=== PATIENT | male | born 1945 | race Two or more races ===

== ENCOUNTER 2018-02-10 19:18 | Emergency (ER) | payer MEDICARE, OTHER ==
[2018-02-10 20:41] LABS: ADD MAN DIFF? NO
[2018-02-10 20:44] LABS: WHITE BLOOD COUNT 9.2 10^3/ul (4.8-10.8)
[2018-02-10 20:44] LABS: BASOPHILS % 0.3 % (0.0-2.0); EOSINOPHILS # 0.4 10^3/ul (0.0-0.5); EOSINOPHILS % 4.8 % (0.0-7.0); HEMATOCRIT 36.8 % (42.0-52.0); HEMOGLOBIN 11.8 g/dl (14.0-18.0); LYMPHOCYTES # 0.7 10^3/ul (0.8-2.9); LYMPHOCYTES % 8.1 % (15.0-51.0); MEAN CORPUSCULAR HGB CONC 32.1 g/dl (32.0-37.0); MEAN CORPUSCULAR VOLUME 93.6 fl (82.0-101.0); MONOCYTE # 0.9 10^3/ul (0.3-0.9); NEUTROPHILS % 76.5 % (39.0-77.0); PLATELET COUNT 183 10^3/UL (140-415); RED BLOOD COUNT 3.93 10^6/ul (4.70-6.10); RED CELL DISTRIBUTION WIDTH 13.1 % (11.5-14.5)
[2018-02-10] MEDS: morphine 4 MG/ML VIAL IV (20:54)
[2018-02-10 21:26] LABS: ANION GAP 13 (8-16); BLOOD UREA NITROGEN 29 mg/dl (7-20); CALCIUM 9.1 mg/dl (8.4-10.2); CARBON DIOXIDE 29 mmol/L (21-31); CHLORIDE 99 mmol/L (97-110); CREATININE 1.44 mg/dl (0.61-1.24); GLUCOSE 274 mg/dl (70-220); POTASSIUM 5.1 mmol/L (3.5-5.1); SODIUM 136 mmol/L (135-144)
[2018-02-10 21:37] LABS: TROPONIN-I 0.027 ng/ml (0.000-0.120)
== END 2018-02-11 00:37 | disposition home or self-care (01) ==
LOC: E/R 02-11 00:37
DX: S39.92XA Unspecified injury of lower back, initial encounter (principal); I10 Essential (primary) hypertension; I25.10 Atherosclerotic heart disease of native coronary artery without angina pectoris; W10.9XXA Fall (on) (from) unspecified stairs and steps, initial encounter; Y92.9 Unspecified place or not applicable; Z79.4 Long term (current) use of insulin; Z79.82 Long term (current) use of aspirin; Z98.61 Coronary angioplasty status; Z87.891 Personal history of nicotine dependence
CPT/HCPCS: 36415; 71045; 72100; 72220; 80048; 84484; 85025; 93005; 96374; 99285-25

== ENCOUNTER → 2018-02-20 | Outpatient (CLI) | payer MEDICARE, OTHER | END | disposition home or self-care (01) | LOC: C/S 13:23 | DX: S39.92XA Unspecified injury of lower back, initial encounter (principal); W19.XXXA Unspecified fall, initial encounter | CPT/HCPCS: 72192 ==

== ENCOUNTER → 2018-03-17 | Outpatient (CLI) | payer MEDICARE, OTHER | END | disposition home or self-care (01) | LOC: HKI 10:29 | DX: M17.0 Bilateral primary osteoarthritis of knee (principal); I10 Essential (primary) hypertension; I25.10 Atherosclerotic heart disease of native coronary artery without angina pectoris; E11.8 Type 2 diabetes mellitus with unspecified complications; Z79.4 Long term (current) use of insulin; Z79.84 Long term (current) use of oral hypoglycemic drugs; Z79.82 Long term (current) use of aspirin | CPT/HCPCS: 20610; 20610-50; 73562-50 ==

== ENCOUNTER → 2018-04-18 | Outpatient (CLI) | payer MEDICARE, OTHER ==
[2018-04-18 13:45] LABS: ADD MAN DIFF? NO
[2018-04-18 13:47] LABS: WHITE BLOOD COUNT 7.6 10^3/ul (4.8-10.8)
[2018-04-18 13:47] LABS: BASOPHILS % 0.5 % (0.0-2.0); EOSINOPHILS # 0.2 10^3/ul (0.0-0.5); HEMATOCRIT 37.4 % (42.0-52.0); LYMPHOCYTES # 1.9 10^3/ul (0.8-2.9); LYMPHOCYTES % 25.5 % (15.0-51.0); MEAN CORPUSCULAR HGB CONC 32.1 g/dl (32.0-37.0); MEAN CORPUSCULAR VOLUME 93.5 fl (82.0-101.0); MEAN PLATELET VOLUME 9.4 fl (7.4-10.4); MONOCYTE # 0.9 10^3/ul (0.3-0.9); MONOCYTES % 11.2 % (0.0-11.0); NEUTROPHIL # 4.6 10^3/ul (1.6-7.5); NEUTROPHILS % 60.4 % (39.0-77.0); PLATELET COUNT 274 10^3/UL (140-415); RED CELL DISTRIBUTION WIDTH 13.2 % (11.5-14.5)
[2018-04-18 14:06] LABS: INR 1.01; PROTIME 13.4 Sec (11.9-14.9)
[2018-04-18 14:07] LABS: PARTIAL THROMBOPLASTIN TIME 36.9 Sec (25.0-35.0)
[2018-04-18 14:09] LABS: ANION GAP 19 (8-16); BLOOD UREA NITROGEN 29 mg/dl (7-20); CALCIUM 9.9 mg/dl (8.4-10.2); CARBON DIOXIDE 27 mmol/L (21-31); CHLORIDE 102 mmol/L (97-110); CREATININE 1.66 mg/dl (0.61-1.24); GLUCOSE 69 mg/dl (70-220); POTASSIUM 5.2 mmol/L (3.5-5.1); SODIUM 143 mmol/L (135-144)
== END | disposition home or self-care (01) ==
LOC: LAB 12:57
DX: Z01.818 Encounter for other preprocedural examination (principal); I10 Essential (primary) hypertension; E11.9 Type 2 diabetes mellitus without complications; I77.89 Other specified disorders of arteries and arterioles; I70.90 Unspecified atherosclerosis; M51.34 Other intervertebral disc degeneration, thoracic region
CPT/HCPCS: 71046; 80048; 85025; 85610; 85730; 93005

== ENCOUNTER 2018-05-03 12:32 | Emergency (ER) | payer MEDICARE, OTHER ==
[2018-05-03] MEDS: BACITRACIN 0.9 GM OINT TOP (13:27)
== END 2018-05-03 13:32 | disposition home or self-care (01) ==
LOC: FTE 12:32
DX: Z48.01 Encounter for change or removal of surgical wound dressing (principal); I10 Essential (primary) hypertension; I25.10 Atherosclerotic heart disease of native coronary artery without angina pectoris; J45.909 Unspecified asthma, uncomplicated; E11.9 Type 2 diabetes mellitus without complications; Z79.4 Long term (current) use of insulin; Z87.891 Personal history of nicotine dependence; Z98.61 Coronary angioplasty status
CPT/HCPCS: 99283

== ENCOUNTER → 2018-05-03 | Outpatient (CLI) | payer MEDICARE, OTHER ==
[2018-05-03 15:23] LABS: ADD MAN DIFF? NO; BASOPHIL # 0.1 10^3/ul (0.0-0.1); BASOPHILS % 0.5 % (0.0-2.0); EOSINOPHILS # 0.3 10^3/ul (0.0-0.5); EOSINOPHILS % 2.9 % (0.0-7.0); HEMATOCRIT 34.3 % (42.0-52.0); HEMOGLOBIN 11.1 g/dl (14.0-18.0); LYMPHOCYTES # 2.1 10^3/ul (0.8-2.9); MEAN CORPUSCULAR HEMOGLOBIN 29.8 pg (29.0-33.0); MEAN CORPUSCULAR HGB CONC 32.4 g/dl (32.0-37.0); MEAN PLATELET VOLUME 9.5 fl (7.4-10.4); MONOCYTE # 0.9 10^3/ul (0.3-0.9); MONOCYTES % 8.5 % (0.0-11.0); NEUTROPHIL # 6.7 10^3/ul (1.6-7.5); PLATELET COUNT 328 10^3/UL (140-415); RED BLOOD COUNT 3.73 10^6/ul (4.70-6.10); RED CELL DISTRIBUTION WIDTH 12.8 % (11.5-14.5)
[2018-05-03 15:23] LABS: WHITE BLOOD COUNT 10.1 10^3/ul (4.8-10.8)
[2018-05-03 15:27] LABS: ADD UMIC YES; UR ASCORBIC ACID NEGATIVE (NEGATIVE); UR BILIRUBIN (Dip) NEGATIVE (NEGATIVE); UR BLOOD (Dip) NEGATIVE (NEGATIVE); UR CLARITY CLEAR (CLEAR); UR COLOR YELLOW (YELLOW); UR GLUCOSE (Dip) NEGATIVE (NEGATIVE); UR KETONES (Dip) NEGATIVE (NEGATIVE); UR LEUKOCYTE ESTERASE (Dip) NEGATIVE Leu/ul (NEGATIVE); UR NITRITE (Dip) NEGATIVE (NEGATIVE); UR RBC 0 /HPF (0-5); UR TOTAL PROTEIN (Dip) 2+ mg/dl (NEGATIVE); UR UROBILINOGEN (Dip) NEGATIVE (NEGATIVE); UR WBC 0 /HPF (0-5)
[2018-05-03 15:45] LABS: ANION GAP 21 (8-16); BLOOD UREA NITROGEN 30 mg/dl (7-20); CALCIUM 9.4 mg/dl (8.4-10.2); CARBON DIOXIDE 26 mmol/L (21-31); CHLORIDE 91 mmol/L (97-110); CREATININE 1.66 mg/dl (0.61-1.24); GLUCOSE 176 mg/dl (70-220); POTASSIUM 5.3 mmol/L (3.5-5.1); SODIUM 133 mmol/L (135-144)
[2018-05-03 16:59] LABS: PROSTATE SPECIFIC ANTIGEN 0.7 ng/ml (0.0-4.0)
== END | disposition home or self-care (01) ==
LOC: LAB 14:38
DX: N18.9 Chronic kidney disease, unspecified (principal)
CPT/HCPCS: 80048; 81001; 84153; 84154; 85025

== ENCOUNTER → 2018-06-30 | Outpatient (CLI) | payer MEDICARE, OTHER | END | disposition home or self-care (01) | LOC: HKI 11:00 | DX: M17.0 Bilateral primary osteoarthritis of knee (principal) | CPT/HCPCS: 20610; 20610-50 ==

== ENCOUNTER → 2018-09-24 | Outpatient (CLI) | payer MEDICARE, OTHER ==
[~2018-09-24] MED LIST: LIDOCAINE 1% (MPF) 5 ML VIAL
== END | disposition home or self-care (01) ==
LOC: U/S 09:53
DX: E04.1 Nontoxic single thyroid nodule (principal)
CPT/HCPCS: 10005; 76536; 80053; 81003; 82043; 83036; 85025; 88104; 88307

== ENCOUNTER → 2018-09-24 | Outpatient (CLI) | payer MEDICARE, OTHER ==
[2018-09-24 12:48] LABS: ADD MAN DIFF? NO
[2018-09-24 12:50] LABS: BASOPHILS % 0.4 % (0.0-2.0); EOSINOPHILS # 0.3 10^3/ul (0.0-0.5); EOSINOPHILS % 3.5 % (0.0-7.0); HEMATOCRIT 37.3 % (42.0-52.0); HEMOGLOBIN 11.8 g/dl (14.0-18.0); LYMPHOCYTES # 1.6 10^3/ul (0.8-2.9); LYMPHOCYTES % 21.9 % (15.0-51.0); MEAN CORPUSCULAR HEMOGLOBIN 29.9 pg (29.0-33.0); MEAN CORPUSCULAR HGB CONC 31.6 g/dl (32.0-37.0); MEAN CORPUSCULAR VOLUME 94.7 fl (82.0-101.0); MEAN PLATELET VOLUME 9.8 fl (7.4-10.4); MONOCYTE # 0.8 10^3/ul (0.3-0.9); MONOCYTES % 10.5 % (0.0-11.0); NEUTROPHIL # 4.5 10^3/ul (1.6-7.5); NEUTROPHILS % 63.1 % (39.0-77.0); PLATELET COUNT 219 10^3/UL (140-415); RED BLOOD COUNT 3.94 10^6/ul (4.70-6.10); RED CELL DISTRIBUTION WIDTH 13.2 % (11.5-14.5)
[2018-09-24 12:50] LABS: WHITE BLOOD COUNT 7.1 10^3/ul (4.8-10.8)
[2018-09-24 13:03] LABS: ADD UMIC NO; UR ASCORBIC ACID NEGATIVE (NEGATIVE); UR BILIRUBIN (Dip) NEGATIVE (NEGATIVE); UR BLOOD (Dip) NEGATIVE (NEGATIVE); UR CLARITY CLEAR (CLEAR); UR COLOR STRAW (YELLOW); UR GLUCOSE (Dip) NEGATIVE (NEGATIVE); UR KETONES (Dip) NEGATIVE (NEGATIVE); UR LEUKOCYTE ESTERASE (Dip) NEGATIVE Leu/ul (NEGATIVE); UR NITRITE (Dip) NEGATIVE (NEGATIVE); UR SPECIFIC GRAVITY (Dip) 1.005 (1.003-1.030); UR TOTAL PROTEIN (Dip) NEGATIVE (NEGATIVE); UR UROBILINOGEN (Dip) NEGATIVE (NEGATIVE)
[2018-09-24 13:05] LABS: HEMOGLOBIN A1C 7.4 % (0-5.9)
[2018-09-24 13:16] LABS: ALANINE AMINOTRANSFERASE 19 IU/L (13-69); ALBUMIN 4.6 g/dl (3.3-4.9); ALBUMIN/GLOBULIN RATIO 1.35; ALKALINE PHOSPHATASE 78 IU/L (42-121); ANION GAP 14 (5-13); ASPARTATE AMINO TRANSFERASE 27 IU/L (15-46); BILIRUBIN,INDIRECT 0.2 mg/dl (0-1.1); BILIRUBIN,TOTAL 0.2 mg/dl (0.2-1.3); BLOOD UREA NITROGEN 30 mg/dl (7-20); CALCIUM 9.6 mg/dl (8.4-10.2); CARBON DIOXIDE 29 mmol/L (21-31); CHLORIDE 96 mmol/L (97-110); CREATININE 1.41 mg/dl (0.61-1.24); GLUCOSE 109 mg/dl (70-220); POTASSIUM 4.9 mmol/L (3.5-5.1); SODIUM 139 mmol/L (135-144)
[2018-09-25 16:17] LABS: CREATININE, RANDOM URINE 19 mg/dL (20-320); MICROALBUMIN 8.8 mg/dL; MICROALBUMIN/CREATININE RATIO 463 (<30)
== END | disposition home or self-care (01) ==
LOC: LAB 12:17
DX: I12.9 Hypertensive chronic kidney disease with stage 1 through stage 4 chronic kidney disease, or unspecified chronic kidney disease (principal); N18.9 Chronic kidney disease, unspecified
CPT/HCPCS: 80053; 81003; 82043; 83036; 85025

== ENCOUNTER → 2018-10-06 | Outpatient (CLI) | payer MEDICARE, OTHER | END | disposition home or self-care (01) | LOC: HKI 11:46 | DX: M17.11 Unilateral primary osteoarthritis, right knee (principal); E11.8 Type 2 diabetes mellitus with unspecified complications; Z79.84 Long term (current) use of oral hypoglycemic drugs; Z79.4 Long term (current) use of insulin | CPT/HCPCS: 20610; 20610-50; 73562-50 ==

== ENCOUNTER → 2019-03-02 | Outpatient (CLI) | payer MEDICARE, OTHER ==
[2019-03-02 11:06] LABS: ADD MAN DIFF? NO
[2019-03-02 11:10] LABS: WHITE BLOOD COUNT 7.2 10^3/ul (4.8-10.8)
[2019-03-02 11:10] LABS: BASOPHILS % 0.6 % (0.0-2.0); EOSINOPHILS # 0.2 10^3/ul (0.0-0.5); EOSINOPHILS % 2.9 % (0.0-7.0); HEMOGLOBIN 11.7 g/dl (14.0-18.0); LYMPHOCYTES # 1.9 10^3/ul (0.8-2.9); MEAN CORPUSCULAR HEMOGLOBIN 29.3 pg (29.0-33.0); MEAN CORPUSCULAR HGB CONC 31.6 g/dl (32.0-37.0); MEAN CORPUSCULAR VOLUME 92.7 fl (82.0-101.0); MONOCYTE # 0.8 10^3/ul (0.3-0.9); MONOCYTES % 11.6 % (0.0-11.0); NEUTROPHIL # 4.3 10^3/ul (1.6-7.5); NEUTROPHILS % 58.8 % (39.0-77.0); PLATELET COUNT 199 10^3/UL (140-415); RED BLOOD COUNT 3.99 10^6/ul (4.70-6.10); RED CELL DISTRIBUTION WIDTH 12.6 % (11.5-14.5)
[2019-03-02 11:14] LABS: ADD UMIC NO; UR ASCORBIC ACID NEGATIVE (NEGATIVE); UR BILIRUBIN (Dip) NEGATIVE (NEGATIVE); UR BLOOD (Dip) NEGATIVE (NEGATIVE); UR CLARITY CLEAR (CLEAR); UR COLOR STRAW (YELLOW); UR GLUCOSE (Dip) NEGATIVE (NEGATIVE); UR KETONES (Dip) NEGATIVE (NEGATIVE); UR LEUKOCYTE ESTERASE (Dip) NEGATIVE Leu/ul (NEGATIVE); UR NITRITE (Dip) NEGATIVE (NEGATIVE); UR SPECIFIC GRAVITY (Dip) 1.006 (1.003-1.030); UR TOTAL PROTEIN (Dip) NEGATIVE (NEGATIVE); UR UROBILINOGEN (Dip) NEGATIVE (NEGATIVE)
[2019-03-02 11:29] LABS: ALANINE AMINOTRANSFERASE 14 IU/L (13-69); ALBUMIN 4.4 g/dl (3.3-4.9); ALBUMIN/GLOBULIN RATIO 1.12; ALKALINE PHOSPHATASE 69 IU/L (42-121); ANION GAP 13 (5-13); ASPARTATE AMINO TRANSFERASE 22 IU/L (15-46); BILIRUBIN,INDIRECT 0.4 mg/dl (0-1.1); BILIRUBIN,TOTAL 0.4 mg/dl (0.2-1.3); BLOOD UREA NITROGEN 35 mg/dl (7-20); CALCIUM 9.4 mg/dl (8.4-10.2); CARBON DIOXIDE 25 mmol/L (21-31); CHLORIDE 101 mmol/L (97-110); CREATININE 1.74 mg/dl (0.61-1.24); GLUCOSE 124 mg/dl (70-220); POTASSIUM 4.9 mmol/L (3.5-5.1); SODIUM 139 mmol/L (135-144); TOTAL PROTEIN 8.3 g/dl (6.1-8.1)
[2019-03-02 11:37] LABS: INR 0.99; PROTIME 13.2 Sec (11.9-14.9)
[2019-03-02 11:38] LABS: PARTIAL THROMBOPLASTIN TIME 38.1 Sec (23.0-35.0)
== END | disposition home or self-care (01) ==
LOC: LAB 10:12
DX: E11.9 Type 2 diabetes mellitus without complications (principal)
CPT/HCPCS: 71045; 80053; 81003; 85025; 85610; 85730

== ENCOUNTER 2019-03-12 05:17 | Inpatient (IN) | payer MEDICARE, OTHER ==
[2019-03-12] MEDS: LACTATED RINGER'S 1,000 ML IV ×2 (06:00→13:27)
[2019-03-12] MEDS ORDERED: ACETAMINOPHEN 500 MG TAB PO (06:00)
[2019-03-12] MEDS ORDERED: TRANEXAMIC ACID 1GM/100ML(PMX) 200 ML (07:13)
[2019-03-12] MEDS: ACETAMINOPHEN 1000MG/100ML IV 100 ML IVPB (07:25)
[2019-03-12] MEDS: DEXAMETHASONE 4 MG/ML 1 ML INJ IV (07:25)
[2019-03-12] MEDS ORDERED: ROCURONIUM 50 MG INJ (07:26)
[2019-03-12] MEDS ORDERED: EPHEDrine 25 MG/5 ML SYG (07:26)
[2019-03-12] MEDS ORDERED: SEVOFLURANE 15 MIN (07:26)
[2019-03-12] MEDS ORDERED: PROPOFOL 100 ML (07:26)
[2019-03-12] MEDS ORDERED: FENTAnyl 50 MCG/ML VIAL (07:26)
[2019-03-12] MEDS ORDERED: CEFAZOLIN 1 GM INJ (07:26)
[2019-03-12] MEDS ORDERED: MIDAZOLAM 1 MG/ML 2 ML INJ (07:26)
[2019-03-12] MEDS ORDERED: PHENYLephrine (100 MCG/ML) 10ML SYG (07:26)
[2019-03-12] MEDS: INSULIN REGULAR, HUMAN 100 UNIT/1 ML 3ML VIAL SC (07:26)
[2019-03-12] MEDS ORDERED: ROPIVACAINE 0.5 % 30 ML VIAL (07:28)
[2019-03-12] MEDS: TRANEXAMIC ACID 1GM/100ML(PMX) 100 ML AT INCISION X1 IVPB (07:47)
[2019-03-12] MEDS: CEFAZOLIN 2 GM/50 ML (PMX) 50 ML (FOR WT < 120 KG) IVPB (07:47)
[2019-03-12] MEDS ORDERED: DEXAMETHASONE 4 MG/ML 5 ML INJ (08:29)
[2019-03-12] MEDS ORDERED: METOCLOPRAMIDE 10 MG INJ (08:29)
[2019-03-12] MEDS ORDERED: ONDANSETRON 4 MG INJ (08:29)
[2019-03-12] MEDS ORDERED: KETOROLAC 30 MG INJ (08:29)
[2019-03-12] MEDS: POLYMYXIN B 500000 UNIT INJ (08:47)
[2019-03-12] MEDS: BACITRACIN 50000 UNITS INJ (08:47)
[2019-03-12] MEDS ORDERED: HETASTARCH 6% NACL 500 ML (08:48)
[2019-03-12] MEDS ORDERED: SUGAMMADEX SODIUM 200 MG/2 ML VIAL IV (09:40)
[2019-03-12] MEDS ORDERED: METOCLOPRAMIDE 10 MG INJ IV (10:00)
[2019-03-12] MEDS ORDERED: HYDROmorphONE 0.5 MG/0.5 ML SYG IV (10:00)
[2019-03-12] MEDS ORDERED: HYDROmorphONE 1 MG/5 ML IV SYRINGE IV ×3 (10:00)
[2019-03-12] MEDS ORDERED: NALBUPHINE HCL (10 MG/1 ML) INJ IV (10:00)
[2019-03-12] MEDS ORDERED: FENTAnyl 50 MCG/ML VIAL IV ×3 (10:00)
[2019-03-12] MEDS ORDERED: oxyCODONE 5 MG TAB PO (10:00)
[2019-03-12] MEDS ORDERED: OXYCODONE/ACETAMINOPHEN (5/325) TAB PO (10:00)
[2019-03-12] MEDS ORDERED: NACL 0.9% 3 ML SYG IV (10:00)
[2019-03-12] MEDS: TRANEXAMIC ACID 1GM/100ML(PMX) 100 ML AT CLOSURE X1 IVPB (10:00)
[2019-03-12] MEDS ORDERED: NALOXONE (0.4 MG/ML) INJ IV ×2 (10:00)
[2019-03-12] MEDS ORDERED: morphine 2 MG INJ IV (10:00)
[2019-03-12] MEDS ORDERED: ALBUMIN HUMAN 5% 250 ML IV (10:00)
[2019-03-12] MEDS ORDERED: ONDANSETRON 4 MG INJ IV ×2 (10:00)
[2019-03-12] MEDS ORDERED: EPHEDrine 25 MG/5 ML SYG IV (10:00)
[2019-03-12] MEDS ORDERED: LABETALOL HCL 20MG INJ IV (10:00)
[2019-03-12] MEDS ORDERED: MEPERIDINE 25 MG INJ IV (10:00)
[2019-03-12] MEDS ORDERED: DIPHENHYDRAMINE 50 MG INJ IV ×2 (10:00)
[2019-03-12] MEDS ORDERED: hydrALAzine 20 MG INJ IV (10:00)
[2019-03-12] MEDS: SOD CHLORIDE 0.9% 1,000 ML IV (10:47)
[2019-03-12] MEDS: INSULIN REGULAR, HUMAN 100 UNIT/1 ML 3ML VIAL IVP (10:55)
[2019-03-12] MEDS ORDERED: DEXTROSE 50% 50 ML SYRINGE IV ×3 (11:00→15:30)
[2019-03-12] MEDS: GABAPENTIN 100 MG CAP PO ×2 (13:47→20:54)
[2019-03-12] MEDS: [UNRECOGNIZED DRUG - REMARK] XX ×2 (15:30→22:59)
[2019-03-12] MEDS ORDERED: GLUCAGON 1 MG INJ IM (15:30)
[2019-03-12] MEDS ORDERED: GLUCOSE GEL 15 GRAM TUBE PO ×2 (15:30)
[2019-03-12] MEDS ORDERED: GLUCOSE GEL 15 GRAM TUBE BUCCAL (15:30)
[2019-03-12] MEDS: CEFAZOLIN 2 GM/50 ML (PMX) 50 ML IVPB (18:07)
[2019-03-12] MEDS: INSULIN ASPART [NOVOLOG] 3 ML PEN SC ×2 (18:08→20:51)
[2019-03-12] MEDS: metFORMIN 500 MG TAB PO (18:09)
[2019-03-12] MEDS: KETOROLAC 15 MG INJ IV (19:07)
[2019-03-12] MEDS: KETOROLAC 30 MG INJ IV (20:47)
[2019-03-12] MEDS: INSULIN GLARGINE [LANTus] (100 UNITS/ML) SYG SC (20:50)
[2019-03-12] MEDS: RANITIDINE 150 MG TAB PO (20:54)
[2019-03-12] MEDS: ATORVASTATIN 40 MG TAB PO (20:54)
[2019-03-12] MEDS: ISOSORBIDE DINITRATE 20 MG TAB PO (20:57)
[2019-03-12] MEDS: METOPROLOL 100 MG TAB PO (20:57)
[2019-03-12] MEDS: HYDROCODONE/APAP (5/325) TAB PO (22:53)
[2019-03-13] MEDS: oxyCODONE 5 MG TAB PO (01:04)
[2019-03-13] MEDS: CEFAZOLIN 2 GM/50 ML (PMX) 50 ML IVPB ×2 (01:08→09:55)
[2019-03-13] MEDS: HYDROmorphONE 0.5 MG/0.5 ML SYG IV (02:13)
[2019-03-13] MEDS: LACTATED RINGER'S 1,000 ML IV ×2 (03:04→10:49)
[2019-03-13 05:09] LABS: ADD MAN DIFF? NO
[2019-03-13 05:12] LABS: BASOPHILS % 0.1 % (0.0-2.0); HEMATOCRIT 28.4 % (42.0-52.0); HEMOGLOBIN 8.9 g/dl (14.0-18.0); LYMPHOCYTES # 1.1 10^3/ul (0.8-2.9); LYMPHOCYTES % 10.6 % (15.0-51.0); MEAN CORPUSCULAR HEMOGLOBIN 29.6 pg (29.0-33.0); MEAN CORPUSCULAR HGB CONC 31.3 g/dl (32.0-37.0); MEAN CORPUSCULAR VOLUME 94.4 fl (82.0-101.0); MEAN PLATELET VOLUME 10.8 fl (7.4-10.4); MONOCYTE # 0.9 10^3/ul (0.3-0.9); MONOCYTES % 8.6 % (0.0-11.0); NEUTROPHIL # 8.2 10^3/ul (1.6-7.5); PLATELET COUNT 176 10^3/UL (140-415); RED BLOOD COUNT 3.01 10^6/ul (4.70-6.10); RED CELL DISTRIBUTION WIDTH 12.5 % (11.5-14.5)
[2019-03-13 05:12] LABS: WHITE BLOOD COUNT 10.2 10^3/ul (4.8-10.8)
[2019-03-13 05:33] LABS: ANION GAP 6 (5-13); BLOOD UREA NITROGEN 39 mg/dl (7-20); CALCIUM 7.9 mg/dl (8.4-10.2); CARBON DIOXIDE 24 mmol/L (21-31); CHLORIDE 108 mmol/L (97-110); CREATININE 1.62 mg/dl (0.61-1.24); GLUCOSE 219 mg/dl (70-220); POTASSIUM 5.8 mmol/L (3.5-5.1); SODIUM 138 mmol/L (135-144)
[2019-03-13] MEDS: [UNRECOGNIZED DRUG - REMARK] XX ×3 (07:30→23:30)
[2019-03-13] MEDS: KETOROLAC 15 MG INJ IV (07:51)
[2019-03-13] MEDS: INSULIN ASPART [NOVOLOG] 3 ML PEN SC ×7 (08:31→21:20)
[2019-03-13] MEDS: metFORMIN 500 MG TAB PO (08:33)
[2019-03-13] MEDS: DOCUSATE SODIUM 100 MG CAP PO ×2 (08:35→21:00)
[2019-03-13] MEDS: ASPIRIN (EC) 81 MG TAB PO ×2 (08:35→21:23)
[2019-03-13] MEDS: LOSARTAN 50 MG TAB PO (08:36)
[2019-03-13] MEDS: FUROSEMIDE 40 MG TAB PO (08:36)
[2019-03-13] MEDS: HYDROCHLOROTHIAZIDE 25 MG TAB PO (08:36)
[2019-03-13] MEDS: RANITIDINE 150 MG TAB PO ×2 (08:36→21:22)
[2019-03-13] MEDS: METOPROLOL 100 MG TAB PO ×2 (08:37→21:26)
[2019-03-13] MEDS: AMLODIPINE 10 MG TAB PO (08:38)
[2019-03-13] MEDS: CELECOXIB 100 MG CAP PO ×2 (08:38→21:23)
[2019-03-13] MEDS: ISOSORBIDE DINITRATE 20 MG TAB PO ×2 (08:38→21:25)
[2019-03-13] MEDS ORDERED: NON-FORMULARY/PATIENT OWN MED (Linaclotide (Linzess) 145 MCG) PO (09:00)
[2019-03-13] MEDS ORDERED: ASPIRIN (EC) 81 MG TAB PO (09:00)
[2019-03-13] MEDS ORDERED: GABAPENTIN 300 MG CAP PO (09:00)
[2019-03-13] MEDS: GABAPENTIN 300 MG CAP PO ×2 (09:02→21:22)
[2019-03-13] MEDS ORDERED: ONDANSETRON 4 MG INJ IV (10:00)
[2019-03-13] MEDS: SODIUM POLYSTYRENE 15 GM KIT (POWDER + SORBITOL) PO (12:00)
[2019-03-13] MEDS: NA POLYST SULFON 15 GM/60 ML BTL PO (12:57)
[2019-03-13] MEDS: INSULIN GLARGINE [LANTus] (100 UNITS/ML) SYG SC (21:21)
[2019-03-13] MEDS: ATORVASTATIN 40 MG TAB PO (21:22)
[2019-03-13] MEDS: LORAZEPAM 1 MG TAB PO (21:26)
[2019-03-14 05:06] LABS: ADD MAN DIFF? NO
[2019-03-14 05:23] LABS: BASOPHILS % 0.3 % (0.0-2.0); EOSINOPHILS # 0.1 10^3/ul (0.0-0.5); EOSINOPHILS % 1.4 % (0.0-7.0); HEMATOCRIT 25.2 % (42.0-52.0); HEMOGLOBIN 8.3 g/dl (14.0-18.0); LYMPHOCYTES # 1.8 10^3/ul (0.8-2.9); LYMPHOCYTES % 23.2 % (15.0-51.0); MEAN CORPUSCULAR HEMOGLOBIN 30.7 pg (29.0-33.0); MEAN CORPUSCULAR HGB CONC 32.9 g/dl (32.0-37.0); MEAN CORPUSCULAR VOLUME 93.3 fl (82.0-101.0); MEAN PLATELET VOLUME 10.4 fl (7.4-10.4); MONOCYTES % 12.8 % (0.0-11.0); NEUTROPHIL # 4.8 10^3/ul (1.6-7.5); NEUTROPHILS % 61.9 % (39.0-77.0); PLATELET COUNT 151 10^3/UL (140-415); RED CELL DISTRIBUTION WIDTH 12.8 % (11.5-14.5)
[2019-03-14 05:23] LABS: WHITE BLOOD COUNT 7.7 10^3/ul (4.8-10.8)
[2019-03-14 05:49] LABS: ANION GAP 5 (5-13); BLOOD UREA NITROGEN 39 mg/dl (7-20); CALCIUM 8.3 mg/dl (8.4-10.2); CARBON DIOXIDE 31 mmol/L (21-31); CHLORIDE 104 mmol/L (97-110); CREATININE 1.62 mg/dl (0.61-1.24); GLUCOSE 132 mg/dl (70-220); POTASSIUM 4.6 mmol/L (3.5-5.1); SODIUM 140 mmol/L (135-144)
[2019-03-14] MEDS: PANTOPRAZOLE (EC) 40 MG TAB PO (06:49)
[2019-03-14] MEDS: oxyCODONE 5 MG TAB PO ×4 (06:50→20:04)
[2019-03-14] MEDS: [UNRECOGNIZED DRUG - REMARK] XX ×3 (07:30→23:30)
[2019-03-14] MEDS: INSULIN ASPART [NOVOLOG] 3 ML PEN SC ×7 (07:50→21:33)
[2019-03-14] MEDS: RANITIDINE 150 MG TAB PO ×2 (09:11→21:38)
[2019-03-14] MEDS: CELECOXIB 100 MG CAP PO ×2 (09:11→21:38)
[2019-03-14] MEDS: DOCUSATE SODIUM 100 MG CAP PO ×2 (09:11→21:00)
[2019-03-14] MEDS: FUROSEMIDE 40 MG TAB PO (09:12)
[2019-03-14] MEDS: ASPIRIN (EC) 81 MG TAB PO ×2 (09:12→21:38)
[2019-03-14] MEDS: GABAPENTIN 300 MG CAP PO ×2 (09:12→21:37)
[2019-03-14] MEDS: AMLODIPINE 10 MG TAB PO (09:13)
[2019-03-14] MEDS: HYDROCHLOROTHIAZIDE 25 MG TAB PO (09:13)
[2019-03-14] MEDS: ISOSORBIDE DINITRATE 20 MG TAB PO ×2 (09:13→21:38)
[2019-03-14] MEDS: METOPROLOL 100 MG TAB PO ×2 (10:04→21:20)
[2019-03-14] MEDS ORDERED: morphine 10 MG INJ IV (12:00)
[2019-03-14] MEDS: morphine 2 MG INJ IV (12:36)
[2019-03-14] MEDS: ACETAMINOPHEN 500 MG TAB PO (21:36)
[2019-03-14] MEDS: INSULIN GLARGINE [LANTus] (100 UNITS/ML) SYG SC (21:36)
[2019-03-14] MEDS: ATORVASTATIN 40 MG TAB PO (21:37)
[2019-03-14 23:31] LABS: LACTIC ACID 0.9 mmol/L (0.5-2.0)
[2019-03-15 05:58] LABS: ADD MAN DIFF? NO
[2019-03-15 06:02] LABS: WHITE BLOOD COUNT 7.4 10^3/ul (4.8-10.8)
[2019-03-15 06:02] LABS: BASOPHILS % 0.3 % (0.0-2.0); EOSINOPHILS # 0.2 10^3/ul (0.0-0.5); EOSINOPHILS % 2.8 % (0.0-7.0); HEMATOCRIT 24.9 % (42.0-52.0); HEMOGLOBIN 7.6 g/dl (14.0-18.0); LYMPHOCYTES # 1.6 10^3/ul (0.8-2.9); LYMPHOCYTES % 21.6 % (15.0-51.0); MEAN CORPUSCULAR HEMOGLOBIN 29.6 pg (29.0-33.0); MEAN CORPUSCULAR HGB CONC 30.5 g/dl (32.0-37.0); MEAN CORPUSCULAR VOLUME 96.9 fl (82.0-101.0); MEAN PLATELET VOLUME 10.8 fl (7.4-10.4); MONOCYTE # 1.1 10^3/ul (0.3-0.9); MONOCYTES % 14.5 % (0.0-11.0); NEUTROPHIL # 4.4 10^3/ul (1.6-7.5); NEUTROPHILS % 60.1 % (39.0-77.0); PLATELET COUNT 144 10^3/UL (140-415); RED BLOOD COUNT 2.57 10^6/ul (4.70-6.10); RED CELL DISTRIBUTION WIDTH 12.9 % (11.5-14.5)
[2019-03-15] MEDS: PANTOPRAZOLE (EC) 40 MG TAB PO (06:28)
[2019-03-15 06:33] LABS: ANION GAP 6 (5-13); BLOOD UREA NITROGEN 36 mg/dl (7-20); CALCIUM 8.2 mg/dl (8.4-10.2); CARBON DIOXIDE 31 mmol/L (21-31); CHLORIDE 97 mmol/L (97-110); CREATININE 1.71 mg/dl (0.61-1.24); GLUCOSE 265 mg/dl (70-220); SODIUM 134 mmol/L (135-144)
[2019-03-15] MEDS: [UNRECOGNIZED DRUG - REMARK] XX ×2 (07:30→14:23)
[2019-03-15] MEDS: CELECOXIB 100 MG CAP PO ×2 (09:56→21:41)
[2019-03-15] MEDS: RANITIDINE 150 MG TAB PO ×2 (09:56→21:40)
[2019-03-15] MEDS: GABAPENTIN 300 MG CAP PO ×2 (09:57→21:41)
[2019-03-15] MEDS: DOCUSATE SODIUM 100 MG CAP PO ×2 (09:57→21:41)
[2019-03-15] MEDS: oxyCODONE 5 MG TAB PO ×2 (09:59→19:26)
[2019-03-15] MEDS: AMLODIPINE 10 MG TAB PO (10:03)
[2019-03-15] MEDS: HYDROCHLOROTHIAZIDE 25 MG TAB PO (10:03)
[2019-03-15] MEDS: ISOSORBIDE DINITRATE 20 MG TAB PO ×2 (10:04→21:45)
[2019-03-15] MEDS: FUROSEMIDE 40 MG TAB PO (10:04)
[2019-03-15] MEDS: METOPROLOL 100 MG TAB PO ×2 (10:04→21:46)
[2019-03-15] MEDS: ASPIRIN (EC) 81 MG TAB PO ×2 (10:05→21:41)
[2019-03-15] MEDS: INSULIN ASPART [NOVOLOG] 3 ML PEN SC ×6 (10:12→22:08)
[2019-03-15] MEDS: INSULIN GLARGINE [LANTus] (100 UNITS/ML) SYG SC (21:40)
[2019-03-15] MEDS: ATORVASTATIN 40 MG TAB PO (21:41)
[2019-03-15] MEDS: ACCU-CHEK XX (22:00)
[2019-03-16] MEDS: ACETAMINOPHEN 500 MG TAB PO (02:14)
[2019-03-16 05:26] LABS: ADD MAN DIFF? NO
[2019-03-16 05:30] LABS: BASOPHILS % 0.1 % (0.0-2.0); EOSINOPHILS # 0.2 10^3/ul (0.0-0.5); EOSINOPHILS % 3.2 % (0.0-7.0); HEMATOCRIT 23.9 % (42.0-52.0); HEMOGLOBIN 7.6 g/dl (14.0-18.0); LYMPHOCYTES # 1.3 10^3/ul (0.8-2.9); LYMPHOCYTES % 17.7 % (15.0-51.0); MEAN CORPUSCULAR HEMOGLOBIN 30.8 pg (29.0-33.0); MEAN CORPUSCULAR HGB CONC 31.8 g/dl (32.0-37.0); MEAN CORPUSCULAR VOLUME 96.8 fl (82.0-101.0); MEAN PLATELET VOLUME 10.7 fl (7.4-10.4); MONOCYTE # 0.9 10^3/ul (0.3-0.9); MONOCYTES % 12.8 % (0.0-11.0); NEUTROPHIL # 4.8 10^3/ul (1.6-7.5); NEUTROPHILS % 65.7 % (39.0-77.0); PLATELET COUNT 155 10^3/UL (140-415); RED BLOOD COUNT 2.47 10^6/ul (4.70-6.10); RED CELL DISTRIBUTION WIDTH 12.7 % (11.5-14.5)
[2019-03-16 05:30] LABS: WHITE BLOOD COUNT 7.3 10^3/ul (4.8-10.8)
[2019-03-16] MEDS: PANTOPRAZOLE (EC) 40 MG TAB PO (05:52)
[2019-03-16 06:14] LABS: ANION GAP 7 (5-13); BLOOD UREA NITROGEN 41 mg/dl (7-20); CALCIUM 8.3 mg/dl (8.4-10.2); CARBON DIOXIDE 30 mmol/L (21-31); CHLORIDE 97 mmol/L (97-110); CREATININE 1.86 mg/dl (0.61-1.24); GLUCOSE 263 mg/dl (70-220); POTASSIUM 4.4 mmol/L (3.5-5.1); SODIUM 134 mmol/L (135-144)
[2019-03-16] MEDS ORDERED: PRASUGREL HYDROCHLORIDE 10 MG TABLET PO (09:00)
[2019-03-16] MEDS: INSULIN ASPART [NOVOLOG] 3 ML PEN SC ×8 (09:16→21:49)
[2019-03-16] MEDS: FUROSEMIDE 40 MG TAB PO (09:18)
[2019-03-16] MEDS: CELECOXIB 100 MG CAP PO ×2 (09:19→21:14)
[2019-03-16] MEDS: AMLODIPINE 10 MG TAB PO (09:19)
[2019-03-16] MEDS: RANITIDINE 150 MG TAB PO ×2 (09:19→21:13)
[2019-03-16] MEDS: METOPROLOL 100 MG TAB PO ×2 (09:19→21:15)
[2019-03-16] MEDS: ASPIRIN (EC) 81 MG TAB PO ×2 (09:19→21:15)
[2019-03-16] MEDS: GABAPENTIN 300 MG CAP PO ×2 (09:19→21:14)
[2019-03-16] MEDS: ISOSORBIDE DINITRATE 20 MG TAB PO ×2 (09:20→21:14)
[2019-03-16] MEDS: HYDROCHLOROTHIAZIDE 25 MG TAB PO (09:20)
[2019-03-16] MEDS: oxyCODONE 5 MG TAB PO ×2 (12:16→21:34)
[2019-03-16] MEDS: ATORVASTATIN 40 MG TAB PO (21:13)
[2019-03-16] MEDS: INSULIN GLARGINE [LANTus] (100 UNITS/ML) SYG SC (21:21)
[2019-03-17 05:52] LABS: ADD MAN DIFF? NO
[2019-03-17 05:58] LABS: BASOPHILS % 0.1 % (0.0-2.0); EOSINOPHILS # 0.3 10^3/ul (0.0-0.5); EOSINOPHILS % 3.6 % (0.0-7.0); HEMATOCRIT 24.3 % (42.0-52.0); HEMOGLOBIN 7.7 g/dl (14.0-18.0); LYMPHOCYTES # 1.3 10^3/ul (0.8-2.9); LYMPHOCYTES % 17.4 % (15.0-51.0); MEAN CORPUSCULAR HEMOGLOBIN 30.6 pg (29.0-33.0); MEAN CORPUSCULAR HGB CONC 31.7 g/dl (32.0-37.0); MEAN CORPUSCULAR VOLUME 96.4 fl (82.0-101.0); MONOCYTES % 13.8 % (0.0-11.0); NEUTROPHIL # 4.8 10^3/ul (1.6-7.5); NEUTROPHILS % 64.3 % (39.0-77.0); PLATELET COUNT 179 10^3/UL (140-415); RED BLOOD COUNT 2.52 10^6/ul (4.70-6.10); RED CELL DISTRIBUTION WIDTH 12.6 % (11.5-14.5)
[2019-03-17 05:58] LABS: WHITE BLOOD COUNT 7.5 10^3/ul (4.8-10.8)
[2019-03-17 06:27] LABS: ANION GAP 7 (5-13); BLOOD UREA NITROGEN 45 mg/dl (7-20); CALCIUM 8.7 mg/dl (8.4-10.2); CARBON DIOXIDE 31 mmol/L (21-31); CHLORIDE 94 mmol/L (97-110); CREATININE 1.92 mg/dl (0.61-1.24); GLUCOSE 244 mg/dl (70-220); POTASSIUM 4.9 mmol/L (3.5-5.1); SODIUM 132 mmol/L (135-144)
[2019-03-17] MEDS: PANTOPRAZOLE (EC) 40 MG TAB PO (06:35)
[2019-03-17] MEDS: oxyCODONE 5 MG TAB PO (08:15)
[2019-03-17] MEDS: INSULIN ASPART [NOVOLOG] 3 ML PEN SC ×7 (08:42→21:51)
[2019-03-17] MEDS: RANITIDINE 150 MG TAB PO ×2 (08:47→21:48)
[2019-03-17] MEDS: METOPROLOL 100 MG TAB PO ×2 (08:48→21:48)
[2019-03-17] MEDS: GABAPENTIN 300 MG CAP PO ×2 (08:48→21:47)
[2019-03-17] MEDS: AMLODIPINE 10 MG TAB PO (08:48)
[2019-03-17] MEDS: LINAGLIPTIN 5 MG TABLET PO (08:48)
[2019-03-17] MEDS: ISOSORBIDE DINITRATE 20 MG TAB PO ×2 (08:49→21:49)
[2019-03-17] MEDS: ASPIRIN (EC) 81 MG TAB PO ×2 (08:49→21:49)
[2019-03-17] MEDS: HYDROCHLOROTHIAZIDE 25 MG TAB PO (08:49)
[2019-03-17] MEDS: FUROSEMIDE 40 MG TAB PO (08:49)
[2019-03-17] MEDS: CELECOXIB 100 MG CAP PO ×2 (08:49→21:49)
[2019-03-17] MEDS: ATORVASTATIN 40 MG TAB PO (21:48)
[2019-03-17] MEDS: INSULIN GLARGINE [LANTus] (100 UNITS/ML) SYG SC (21:51)
[2019-03-18 05:07] LABS: ADD MAN DIFF? NO
[2019-03-18 05:11] LABS: BASOPHILS % 0.3 % (0.0-2.0); EOSINOPHILS # 0.2 10^3/ul (0.0-0.5); EOSINOPHILS % 3.6 % (0.0-7.0); HEMATOCRIT 25.5 % (42.0-52.0); LYMPHOCYTES # 1.3 10^3/ul (0.8-2.9); LYMPHOCYTES % 19.2 % (15.0-51.0); MEAN CORPUSCULAR HEMOGLOBIN 30.2 pg (29.0-33.0); MEAN CORPUSCULAR HGB CONC 31.4 g/dl (32.0-37.0); MEAN CORPUSCULAR VOLUME 96.2 fl (82.0-101.0); MEAN PLATELET VOLUME 10.3 fl (7.4-10.4); MONOCYTE # 1.1 10^3/ul (0.3-0.9); MONOCYTES % 16.5 % (0.0-11.0); NEUTROPHILS % 59.5 % (39.0-77.0); PLATELET COUNT 198 10^3/UL (140-415); RED BLOOD COUNT 2.65 10^6/ul (4.70-6.10); RED CELL DISTRIBUTION WIDTH 12.7 % (11.5-14.5)
[2019-03-18 05:11] LABS: WHITE BLOOD COUNT 6.7 10^3/ul (4.8-10.8)
[2019-03-18 05:32] LABS: ANION GAP 6 (5-13); BLOOD UREA NITROGEN 43 mg/dl (7-20); CALCIUM 8.6 mg/dl (8.4-10.2); CARBON DIOXIDE 31 mmol/L (21-31); CHLORIDE 97 mmol/L (97-110); GLUCOSE 232 mg/dl (70-220); POTASSIUM 4.7 mmol/L (3.5-5.1); SODIUM 134 mmol/L (135-144)
[2019-03-18] MEDS: PANTOPRAZOLE (EC) 40 MG TAB PO (06:17)
[2019-03-18] MEDS: INSULIN ASPART [NOVOLOG] 3 ML PEN SC ×7 (09:01→21:00)
[2019-03-18] MEDS: LINAGLIPTIN 5 MG TABLET PO (09:03)
[2019-03-18] MEDS: RANITIDINE 150 MG TAB PO ×2 (09:04→21:53)
[2019-03-18] MEDS: CELECOXIB 100 MG CAP PO ×2 (09:04→21:54)
[2019-03-18] MEDS: GABAPENTIN 300 MG CAP PO ×2 (09:04→21:54)
[2019-03-18] MEDS: HYDROCHLOROTHIAZIDE 25 MG TAB PO (09:05)
[2019-03-18] MEDS: ISOSORBIDE DINITRATE 20 MG TAB PO ×2 (09:05→21:54)
[2019-03-18] MEDS: ASPIRIN (EC) 81 MG TAB PO ×2 (09:05→21:54)
[2019-03-18] MEDS: FUROSEMIDE 40 MG TAB PO (09:06)
[2019-03-18] MEDS: AMLODIPINE 10 MG TAB PO (09:07)
[2019-03-18] MEDS: METOPROLOL 100 MG TAB PO ×2 (09:07→21:55)
[2019-03-18] MEDS: oxyCODONE 5 MG TAB PO ×2 (11:26→23:14)
[2019-03-18] MEDS: MAGNESIUM HYDROXIDE 30ML CUP PO (11:31)
[2019-03-18] MEDS ORDERED: INSULIN GLARGINE [LANTus] (100 UNITS/ML) SYG SC (21:00)
[2019-03-18] MEDS: ATORVASTATIN 40 MG TAB PO (21:53)
[2019-03-18] MEDS: INSULIN GLARGINE [LANTus] (100 UNITS/ML) SYG SC (21:57)
[2019-03-18] MEDS: SOD CHLORIDE 0.9% 1,000 ML IV (23:00)
[2019-03-19 05:08] LABS: ADD MAN DIFF? NO
[2019-03-19 05:12] LABS: BASOPHILS % 0.3 % (0.0-2.0); EOSINOPHILS # 0.2 10^3/ul (0.0-0.5); EOSINOPHILS % 3.2 % (0.0-7.0); HEMATOCRIT 23.9 % (42.0-52.0); HEMOGLOBIN 7.7 g/dl (14.0-18.0); LYMPHOCYTES # 1.2 10^3/ul (0.8-2.9); MEAN CORPUSCULAR HEMOGLOBIN 30.4 pg (29.0-33.0); MEAN CORPUSCULAR HGB CONC 32.2 g/dl (32.0-37.0); MEAN CORPUSCULAR VOLUME 94.5 fl (82.0-101.0); MEAN PLATELET VOLUME 10.4 fl (7.4-10.4); MONOCYTE # 1.1 10^3/ul (0.3-0.9); MONOCYTES % 15.8 % (0.0-11.0); NEUTROPHIL # 4.3 10^3/ul (1.6-7.5); NEUTROPHILS % 62.5 % (39.0-77.0); NUCLEATED RED BLOOD CELLS% 0.4 /100WBC (0.0-0.0); PLATELET COUNT 209 10^3/UL (140-415); RED BLOOD COUNT 2.53 10^6/ul (4.70-6.10); RED CELL DISTRIBUTION WIDTH 12.7 % (11.5-14.5)
[2019-03-19 05:12] LABS: WHITE BLOOD COUNT 6.8 10^3/ul (4.8-10.8)
[2019-03-19 05:39] LABS: ANION GAP 7 (5-13); BLOOD UREA NITROGEN 43 mg/dl (7-20); CALCIUM 8.4 mg/dl (8.4-10.2); CARBON DIOXIDE 31 mmol/L (21-31); CHLORIDE 101 mmol/L (97-110); CREATININE 1.74 mg/dl (0.61-1.24); GLUCOSE 145 mg/dl (70-220); POTASSIUM 4.6 mmol/L (3.5-5.1); SODIUM 139 mmol/L (135-144)
[2019-03-19] MEDS: PANTOPRAZOLE (EC) 40 MG TAB PO (06:00)
[2019-03-19 08:43] LABS: IRON 46 ug/dl (35-150)
[2019-03-19] MEDS: INSULIN ASPART [NOVOLOG] 3 ML PEN SC ×7 (08:50→20:17)
[2019-03-19] MEDS: RANITIDINE 150 MG TAB PO ×2 (08:59→20:06)
[2019-03-19] MEDS: LINAGLIPTIN 5 MG TABLET PO (09:00)
[2019-03-19] MEDS: GABAPENTIN 300 MG CAP PO ×2 (09:00→20:07)
[2019-03-19] MEDS: CELECOXIB 100 MG CAP PO ×2 (09:00→20:07)
[2019-03-19] MEDS: METOPROLOL 100 MG TAB PO ×2 (09:01→20:09)
[2019-03-19] MEDS: HYDROCHLOROTHIAZIDE 25 MG TAB PO (09:01)
[2019-03-19 09:02] LABS: % IRON SATURATION 17 % SAT (22-52); TOTAL IRON BINDING CAPACITY 266 ug/dl (241-421)
[2019-03-19] MEDS: AMLODIPINE 10 MG TAB PO (09:02)
[2019-03-19] MEDS: ASPIRIN (EC) 81 MG TAB PO ×2 (09:02→20:07)
[2019-03-19] MEDS: FUROSEMIDE 40 MG TAB PO (09:02)
[2019-03-19] MEDS: ISOSORBIDE DINITRATE 20 MG TAB PO ×2 (09:02→20:09)
[2019-03-19 09:21] LABS: HEPATITIS B SURFACE ANTIGEN NEGATIVE (NEGATIVE)
[2019-03-19] MEDS: oxyCODONE 5 MG TAB PO ×2 (12:09→20:14)
[2019-03-19] MEDS: SOD CHLORIDE 0.9% 1,000 ML IV (12:58)
[2019-03-19 13:32] LABS: HEPATITIS C VIRAL ANTIBODY NEGATIVE (NEGATIVE)
[2019-03-19 13:42] LABS: FOLATE 9.4 ng/ml (2.8-20.0)
[2019-03-19] MEDS: ATORVASTATIN 40 MG TAB PO (20:07)
[2019-03-19] MEDS: INSULIN GLARGINE [LANTus] (100 UNITS/ML) SYG SC (20:08)
[2019-03-19 22:04] LABS: RAPID PLASMA REAGIN NONREACTIVE (NR)
== END 2019-03-19 20:50 | DRG 470 ==
LOC: REC 05:17 → MS1 03-14 21:20
PROVIDERS: Orthopaedic Surgery
PROC: 0SRC0J9 Replacement of Right Knee Joint with Synthetic Substitute, Cemented, Open Approach (ICD-10-PCS; principal; 2019-03-12 07:30)
DX: M17.11 Unilateral primary osteoarthritis, right knee (principal); N18.4 Chronic kidney disease, stage 4 (severe); N17.9 Acute kidney failure, unspecified; E11.22 Type 2 diabetes mellitus with diabetic chronic kidney disease; I12.9 Hypertensive chronic kidney disease with stage 1 through stage 4 chronic kidney disease, or unspecified chronic kidney disease; I25.10 Atherosclerotic heart disease of native coronary artery without angina pectoris; G47.30 Sleep apnea, unspecified; Z79.4 Long term (current) use of insulin; Z79.82 Long term (current) use of aspirin; Z95.5 Presence of coronary angioplasty implant and graft; Z87.891 Personal history of nicotine dependence
CPT/HCPCS: 71045; 73560; 80048; 82607; 82728; 82746; 82962; 83540; 83605; 85025; 86592; 86803; 86850; 86900; 86901; 87040-91; 87081; 87086; 87340; 88304; 88311; 94660; 94760; 97110; 97116; 97161; 97167; 97530; 97535